=== PATIENT | male | born 1975 | race Hispanic/Latino ===

== ENCOUNTER 2021-06-13 08:34 | Emergency (ER) | payer SELFPAY ==
[~2021-06-13] VITALS: Ht 167.6 cm; Wt 78.5 kg
[~2021-06-13 08:34] MED LIST: CHLORDIAZEPOXIDE5 MG; Chlordiazepoxide Hcl PO; LISINOPRIL10 MG PO; MAGNESIUM OXID400 MG PO; METFORMIN HCL500 MG PO; METOPROLOL TART50 MG PO; Multivitamins/Minerals PO; NORVASC10 MG PO; TRANDATE100 MG PO; VITAMIN B-1100 MG PO
[2021-06-13] MEDS ORDERED: SODIUM CHLORIDE 0.9% 1000ML 1,000 ML IV STA (09:02)
[2021-06-13 09:23] LABS: BASOPHILS % 0.3 % (0.0-1.0); HEMATOCRIT 37.9 % (38.2-49.6); INR 0.95; LYMPHOCYTES # (AUTO) 0.8 (1.0-3.2); LYMPHOCYTES % 5.8 % (18.0-39.1); MEAN CORPUSCULAR HEMOGLOBIN 29.2 pg (28-32); MEAN CORPUSCULAR HGB CONC 31.7 g/dL (31-35); MEAN CORPUSCULAR VOLUME 92.2 fL (81-99); MONOCYTES # (AUTO) 1.1 (0.2-0.8); MONOCYTES % 8.4 % (4.4-11.3); NEUTROPHILS # (AUTO) 10.8 (2.1-6.9); NEUTROPHILS % 83.9 % (38.7-80.0); PLATELET COUNT 142 x10e3/uL (140-360); PROTHROMBIN TIME 13.3 seconds (11.9-14.5); RED BLOOD COUNT 4.11 x10e6/uL (4.3-5.7); RED CELL DISTRIBUTION WIDTH 15.5 % (11.7-14.4)
[2021-06-13 09:24] LABS: PARTIAL THROMBOPLASTIN TIME 28.1 seconds (23.8-35.5)
[2021-06-13] MEDS ORDERED: LORAZEPAM INJ 2 MG/ML VIAL IV ONE ×2 (09:30→13:00)
[2021-06-13 09:36] LABS: ALBUMIN 3.8 g/dL (3.5-5.0); ALBUMIN/GLOBULIN RATIO 0.7 (0.8-2.0); ANION GAP 48.4 mmol/L (8-16); CALCIUM 9.1 mg/dL (8.4-10.2); CREATINE KINASE MB 1.8 ng/mL (0-5.0); CREATININE, SERUM 2.08 mg/dL (0.72-1.25); MAGNESIUM 1.6 MG/DL (1.3-2.1); POTASSIUM 3.4 mmol/L (3.5-5.1)
[2021-06-13 09:38] LABS: SALICYLATE < 5.0 mg/dL (0-30)
[2021-06-13] MEDS ORDERED: INSULIN REGULAR, HUMAN 100 UNIT/1 ML IV ONE (09:45)
[2021-06-13 09:57] LABS: ABG HCO3 4 mmol/L (22-26); ABG PCO2 9 mmHg (35-45); ABG PH 7.21 (7.35-7.45); ABG PO2 130 mmHg (80-105)
[2021-06-13 09:58] LABS: ABG TCO2 5
[2021-06-13] MEDS ORDERED: MULTIVITAMINS- 12 INJECTION 10 ML, FOLIC ACID MDV 5 MG, THIAMINE HCL INJ 100 MG in SODI... IV ONE (10:00)
[2021-06-13] MEDS ORDERED: DEXTROSE 50% SYRINGE 50 ML IV PRN (10:00)
[2021-06-13] MEDS ORDERED: SODIUM CHLORIDE 0.9% 100 ML ONE (10:22)
[2021-06-13] MEDS ORDERED: INSULIN REGULAR, HUMAN 3ML VL 100 UNIT in SODIUM CHLORIDE 0.9% 100 ML IV SCH ×2 (10:30)
[2021-06-13 10:51] LABS: CLARITY,URINE CLEAR (CLEAR); COLOR,URINE YELLOW (YELLOW)
[2021-06-13 10:52] LABS: AMPHETAMINES SCREEN,URINE NEGATIVE (NEGATIVE); BENZODIAZEPINES SCREEN,URINE NEGATIVE (NEGATIVE); KETONES,URINE >=160 (NEGATIVE); LEUKOCYTE ESTERASE ,URINE NEGATIVE (NEGATIVE); NITRITE,URINE NEGATIVE (NEGATIVE); PHENCYCLIDINE SCREEN,URINE NEGATIVE (NEGATIVE); PROTEIN,URINE DIPSTICK >=300 (NEGATIVE); URINE UROBILINOGEN 0.2 mg/dL (0.2 - 1)
[2021-06-13] MEDS ORDERED: LABETALOL HCL 5 MG/ML 20ML VIAL IV STA (10:52)
[2021-06-13 11:01] LABS: MUCUS,URINE FEW (RARE); WBC,URINE (MAN) 0-5 /HPF (0-5)
== END 2021-06-13 12:54 | disposition short-term general hospital (02) ==
LOC: ER 09:01
DX: E11.10 Type 2 diabetes mellitus with ketoacidosis without coma (principal); Z79.4 Long term (current) use of insulin; I10 Essential (primary) hypertension; F10.10 Alcohol abuse, uncomplicated; E78.00 Pure hypercholesterolemia, unspecified
CPT/HCPCS: 36415; 36600; 71045; 80053; 80307; 80320; 80329 ×2; 81001; 82140; 82550; 82553; 82805; 82948; 83605; 83690; 83735; 83880; 84484; 85025; 85610; 85730; 87086; 93005; 99284; C9113; J2060; J3411; J3490; J7030; J7050; U0002

== ENCOUNTER 2023-01-26 14:33 | Emergency (ER) | payer BC, OTHER ==
[~2023-01-26] VITALS: Ht 167.6 cm; Wt 78.5 kg
[2023-01-26 14:56] LABS: BASOPHILS % 0.1 % (0.0-1.0); EOSINOPHILS # (AUTO) 0.1 (0.0-0.4); EOSINOPHILS % 1.1 % (0.0-6.0); HEMATOCRIT 34.6 % (38.2-49.6); HEMOGLOBIN 11.5 g/dL (14.0-18.0); LYMPHOCYTES % 11.2 % (18.0-39.1); MEAN CORPUSCULAR HEMOGLOBIN 30.3 pg (28-32); MEAN CORPUSCULAR HGB CONC 33.2 g/dL (31-35); MEAN CORPUSCULAR VOLUME 91.1 fL (81-99); MONOCYTES # (AUTO) 0.6 (0.2-0.8); MONOCYTES % 6.5 % (4.4-11.3); NEUTROPHILS % 80.8 % (38.7-80.0); PLATELET COUNT 118 x10e3/uL (140-360); RED CELL DISTRIBUTION WIDTH 13.6 % (11.7-14.4)
[2023-01-26] MEDS ORDERED: LACTATED RINGER'S 1,000 ML ONE (14:58)
[2023-01-26] MEDS ORDERED: LACTATED RINGER'S 1,000 ML IV ONE (15:00)
[2023-01-26 15:08] LABS: ALBUMIN 3.7 g/dL (3.5-5.0); ALBUMIN/GLOBULIN RATIO 0.8 (0.8-2.0); ANION GAP 15.6 mmol/L (8-16); CALCIUM 8.9 mg/dL (8.4-10.2); CREATININE, SERUM 1.59 mg/dL (0.72-1.25); POTASSIUM 3.6 mmol/L (3.5-5.1)
[2023-01-26 16:15] VITALS: BP 124/89
== END 2023-01-26 16:30 | disposition home or self-care (01) ==
LOC: ER 14:38
DX: R55 Syncope and collapse (principal); E86.0 Dehydration; F10.10 Alcohol abuse, uncomplicated; E11.65 Type 2 diabetes mellitus with hyperglycemia; I10 Essential (primary) hypertension; E78.5 Hyperlipidemia, unspecified
CPT/HCPCS: 36415; 80053; 83880; 84484; 85025; 93005; 99284; J7121